=== PATIENT | male | born 1960 | race Caucasian/White ===

== ENCOUNTER 2016-08-26 08:31 | Emergency (ER) | payer OTHER ==
--- NOTE | 2016-08-26 10:35 | DIAGNOSTIC IMAGING REPORT ---
PROCEDURE: XR CHEST 1 VIEW INDICATION: COPD TECHNIQUE: Portable AP view 10:00 a.m. COMPARISON: Chest x-ray 10/14/2010. FINDINGS: Left basilar scar. Interval median sternotomy. Heart and mediastinum are normal. Thorax is normal. IMPRESSION: 1. No acute changes 2. Left basilar scar 3. Median sternotomy
--- NOTE | 2016-08-26 11:49 | ED CLINICAL REPORT ---
Clinical Report - Physicians/Mid Levels [facility] [address] [place] [address] 08/26/2016 8:32 Patient: JON JACKSON Time Seen: 0840. Arrived- By ambulance. Historian- patient and EMS personnel. HISTORY OF PRESENT ILLNESS Chief Complaint: DYSPNEA and HISTORY OF CHRONIC OBSTRUCTIVE PULMONARY DISEASE. This started just prior to arrival today and is still present but is improving. It was abrupt in onset and has been constant but is not gone now. The dyspnea is severe and is worsened by being in a supine position and is improved with sitting upright. The patient has had a mild cough productive of clear sputum. No fever, chest pain or discomfort, calf pain or foot swelling. He has had moderate anxiety. Similar symptoms previously: Many times. Recent medical care: The patient was seen recently by a health care provider. ( States he had bronchitis about 1 month ago. Treated with an antibiotic but not sure of the name.). REVIEW OF SYSTEMS The patient has not had weight loss. No muscle aches, eye irritation, sore throat, nasal discharge or sinus drainage. No nausea, vomiting, abdominal pain, diarrhea or black stools. No bloody stools, headache, fainting episodes, blurred vision or difficulty with urination. No skin rash, enlarged lymph nodes or joint pain. All systems otherwise negative, except as recorded above. PAST HISTORY See nurses notes. Problems: Headache. Breast Cancer. Ulcerative Colitis. Aspiration Pneumonia. Carbon Monoxide Poisoning. Cancer of kidney. Neuropathic pain. "Pre diabetic". COPD - Chronic Obstructive Pulmonary Disease. Myocardial Infarction. Kyrles disease. Additional Surgeries: Breast cancer. Endoscopy. Nephrectomy. Medications: Combivent Respimat Inhalation. Albuterol Sulfate Inhalation. Vistaril Oral. Magnesium Oral. Xanax Oral (Tablet 1 mg). CloNIDine HCl Oral (Tablet 0.2 mg), 3x a day. Morphine 30 mg ER QID. Allergies: Amoxicillin. E. E. S.. Erythromycin. IV Contrast. PCN. Rocephin. Several antidepressants. SOCIAL HISTORY Smoker- current status unknown. No alcohol use or drug use. No recent travel. Is a local resident. ADDITIONAL NOTES The nursing notes have been reviewed. PHYSICAL EXAM Vital Signs: Oxygen saturation normal. Appearance: Alert. No acute distress. Eyes: Pupils equal, round and reactive to light. Eyes normal inspection. ENT: Ears normal. Nose normal. Pharynx normal. Uvula midline. Neck: Normal inspection. No jugular venous distention. Neck supple. CVS: Normal heart rate and rhythm. Heart sounds normal. Pulses normal. (well healed anterior scar consistent with reported bypass surgery). Respiratory: No respiratory distress. Breath sounds normal. No wheezes, stridor, rales or rhonchi. Abdomen: Soft and nontender. No organomegaly. Skin: Skin warm and dry. Normal skin color. No rash. Normal skin turgor. Extremities: Extremities exhibit normal ROM. No lower extremity edema. Neuro: Oriented X 3. No motor deficit. No sensory deficit. LABS, X-RAYS, AND EKG EKG: No acute ischemia. Normal sinus rhythm. Rate: 74. Normal P waves. Normal MORTEZA. Normal QRS complex. Normal axis. Non-specific T wave inversion in lead V1, V2 and V3. No ST elevation or depression. normal sinus. with non specific t wave inversions. EKG unchanged when compared with prior EKG. (October 14, 2010). The study has been interpreted contemporaneously. The study has been independently viewed by me. The EKG appears to be a good tracing. Chest X-ray: No acute disease. Normal lung markings present. Normal heart size. Mediastinum normal. Great vessels normal. Soft tissues normal. No infiltrate. No fracture. No bony lesion present. Views: AP (portable). Technique: good. The X-rays were independently viewed by me, interpreted by the radiologist and contemporaneously by me and discussed with the radiologist. Prior films were not available for comparison. Laboratory Tests: CBC w Diff: (SULEMAN: 08/26/2016 09:55) ( MsgRcvd 08/26/2016 10:09) Final results Test Result Flag Units (Reference) WHITE BLOOD COUNT 12.7 H K/uL (4.5-11.5) RED BLOOD COUNT 5.32 M/uL (4.50-5.90) HEMOGLOBIN 15.9 gm/dL (13.5-17.5) HEMATOCRIT 48.8 % (41.0-53.0) MEAN CELL VOLUME 92 fL (80-100) MEAN CORPUSCULAR HGB 30 pg (26-34) MEAN CORPUSCULAR HGB CONC 33 g/dL (31-37) RED CELL DISTRIBUTION WIDTH 15.8 H % (11.6-14.8) PLATELET COUNT 164 K/uL (150-400) NEUTROPHIL % 79.3 H % (50-75) LYMPH % 11.5 L % (25-40) MONO % 7.0 % (3-14) EOSINOPHIL % 1.8 % (0-4) BASOPHIL % 0.4 % (0-2) [id number]: (SULEMAN: 08/26/2016 09:55) ( [facility] 08/26/2016 10:17) Final results Test Result Flag Units (Reference) D-DIMER QUANTITATIVE 0.40 ug/mLFEU (0.27-0.52) The primary value of this quantitative assay relates toits negative predictive value (i.e. exclusion) of pulmonaryembolism/deep vein thrombosis/DIC.Elevated levels of d-dimer may also occur with:, age, cancer, inflammation, liver disease,post-op, infection, hematoma, coronary disease, peripheralarteriopathy, bleeding disorders and thrombolytic treatment.Results should be correlated with other clinical andradiological data.Testing Methodology: Latex Immunoassay BNP: (SULEMAN: 08/26/2016 09:55) ( [facility] 08/26/2016 10:29) Final results Test Result Flag Units (Reference) B-TYPE NATRIURETIC PEPTIDE 53.4 pg/ml (5-100) Troponin-I: (SULEMAN: 08/26/2016 09:55) ( [facility] 08/26/2016 10:43) Final results Test Result Flag Units (Reference) TROPONIN I <0.05 L ng/mL (0.00-1.5) TROPONIN REFERENCE RANGE:<0.1 NEGATIVE0.1-1.5 INDETERMINANT>1.5 POSITIVE CMP: (SULEMAN: 08/26/2016 09:55) ( MsgRcvd 08/26/2016 10:43) Final results Test Result Flag Units (Reference) GLUCOSE 102 mg/dL (70-110) BUN 16 mg/dL (7-18) CREATININE 1.0 mg/dL (0.6-1.3) Estimated GFR >60 mL/min Estimated GFR- >60 mL/min Note: Persistent reduction over 3 months in eGFR<60 mL/min/1.73 m2 defines CKD. Patients with eGFR values>=60 mL/min/1.73 m2 may also have CKD if evidence ofpersistent proteinuria. Additional information may be foundat www.kidney.org. SODIUM 140 mmol/L (136-145) POTASSIUM 4.6 mmol/L (3.5-5.1) CHLORIDE 101 mmol/L (98-107) CARBON DIOXIDE 27 mmol/L (21-32) CALCIUM 9.7 mg/dL (8.5-10.1) TOTAL PROTEIN 7.7 g/dL (6.4-8.2) ALBUMIN 4.0 g/dL (3.3-5.0) BILIRUBIN, TOTAL 0.7 mg/dL (0.0-1.0) ALKALINE PHOSPHATASE 97 U/L (46-116) AST (SGOT) 19 U/L (15-37) ALT (SGPT) 15 U/L (12-78) . Pulse Oximetry: 08/26/2016 08:50 O2 saturation: 97%. (FIO2 - room air). Interpretation: normal. PROGRESS AND PROCEDURES Course of Care: Patient was signed out to me by the off going emergency physician after having been evaluatedfor his dyspnea and treated with a DuoNeb. Patient did report feeling much better after this intervention, and workup was unremarkable including a chest x-ray, laboratory studies and EKG. Patient's anxiety level was significantly less on reevaluation and I did feel he was stable for discharge home. No emergent condition was identified. Patient counseled in person regarding the patient's stable condition, test results, diagnosis and need for follow-up. Old medical records reviewed. Disposition: Discharged. Condition: stable and improved. CLINICAL IMPRESSION Acute exacerbation of COPD. Anxiety reaction with hyperventilation. INSTRUCTIONS (Your tests look good--no evidence of an emergent cause of your symptoms.). Warnings: GENERAL WARNINGS: Return or contact your physician immediately if your condition worsens or changes unexpectedly, if not improving as expected, or if other problems arise. Your Current Medications: CONTINUE TAKING THE FOLLOWING MEDICATIONS: Albuterol Sulfate Inhalation. CloNIDine HCl Oral : Tablet 0.2 mg, 3x a day. Combivent Respimat Inhalation. Magnesium Oral. Morphine 30 mg ER QID*. Vistaril Oral. Xanax Oral : Tablet 1 mg. Prescription Medications: Xanax 1 mg: take 1 orally every 8 hours as needed for anxiety. Dispense ten (10). No refill. Substitution is permissible. Follow-up: Follow up with your doctor. Call for the next available appointment. Understanding of the discharge instructions verbalized by patient. (Electronically signed by Francia Avina MD 08/29/2016 22:38)
--- NOTE | 2016-08-26 11:49 | ED ORDER SUMMARY ---
..... Patient: JON JACKSON OrderSheet [facility] VisitID: [id number] [address] [place] [address] 56y, M Registration Date/Time: 08/26/2016 ORDER SHEET Weight: 90.7 kg (stated) Allergies: Amoxicillin, E. E. S., Erythromycin, IV Contrast, PCN, Rocephin, Several antidepressants GENERAL ORDERS: Chest 1V Urgent (08:37 08/26/2016 Loni Hall) (Ack 8:39 PWeiler ER Tech1) (10:40 JSimbeck R.N.) Programmer Developer (Continuous) (Respiratory Distress) (08:37 08/26/2016 Loni Hall) (8:59 JSimbeck R.N.) CBC w Diff Urgent (08:38 08/26/2016 Loni Hall) (Ack 8:39 PWeiler ER Tech1) (10:39 JSimbeck R.N.) CMP Urgent (08:38 08/26/2016 Loni Hall) (Ack 8:39 PWeiler ER Tech1) (10:39 JSimbeck R.N.) Pulse oximeter (08:38 08/26/2016 Loni Hall) (8:59 JSimbeck R.N.) RT Evaluation Stat (08:38 08/26/2016 Loni Hall) (Ack 8:39 PWeiler ER Tech1) (8:59 JSimbeck R.N.) Troponin-I Urgent (08:48 08/26/2016 Loni Hall) (Ack 8:52 PWeiler ER Tech1) (10:40 JSimbeck R.N.) D-Dimer Urgent (08:48 08/26/2016 Loni Hall) (Ack 8:52 PWeikaren ER Tech1) (10:40 JSimbeck R.N.) BNP Urgent (08:48 08/26/2016 Loni Hall) (Ack 8:52 PWeikaren ER Tech1) (10:40 JSimbeck R.N.) EKG - ER Stat (08:48 08/26/2016 Loni Hall) (8:51 PWeikaren ER Tech1) MEDICATION ORDERS: DuoNeb Neb Tx 1 unit dose (NOW) (08:48 08/26/2016 Loni Hall) (8:49 MNance) IV FLUIDS: IV Saline Lock (08:38 08/26/2016 Loni Hall) (Ack 9:35 Christiano Braswell) ORDER SHEET NOTES: [Electronically signed by Birdie Miramontes R.N. (12:19 08/26/2016)] [Electronically signed by Francia Avina MD (22:38 08/29/2016)] [Electronically locked/signed by Birdie Miramontes R.N. (12:19 08/26/2016)]
--- NOTE | 2016-08-26 11:49 | ED NURSING NOTES ---
Clinical Report - Nurses [facility] [address] [place] [address] 08/26/2016 8:32 Patient: JON JACKSON TRIAGE Triage time 0835. Acuity: LEVEL 3. Chief Complaint: DIFFICULTY BREATHING and (unable to get a full breath, anxiety, unable to sleep. Sx are chronic with an acute exacerbation for the past several days. Ran out of Xanax.). 08:55. SEPSIS SCREEN: Sepsis Screen. Negative (no infection suspected/documented). RUSSELL COMA SCORE: [place] Coma Scale: 15- eyes open spontaneously (4); best verbal response- oriented x 4 (5); best motor response- obeys commands (6). --08:59 Klever Bassett R.N. 08:50 08/26/16. BP: 154/107 taken on the left arm, while sitting. HR: 82. RR: 20. O2 saturation: 97% on room air. Pain level now: 10/06. --08:59 Klever Bassett R.N. 09:02 08/26/16. O2 saturation: 94% on room air. Temp: 98.7 F (oral). Additional comments: after Albuterol neb tx. --09:03 Klever Bassett R.N. Weight: 90.7 kg stated. Height/Length: 69 inches Per Patient. BMI: 29.5. --08:55 Klever Bassett R.N. Medications CloNIDine HCl Oral (Tablet 0.2 mg), 3x a day. Morphine 30 mg ER QID. --08:50 Klever Bassett R.N. Xanax Oral (Tablet 1 mg). --08:50 Klever Bassett R.N. Magnesium Oral. --08:51 Klever Bassett R.N. Vistaril Oral. --08:51 Klever Bassett R.N. Albuterol Sulfate Inhalation. --08:51 Klever Bassett R.N. Combivent Respimat Inhalation. --08:52 Simbeck, Klever, R.N. Allergies Amoxicillin. E. E. S.. Erythromycin. IV Contrast. PCN. Rocephin. Several antidepressants. --08:45 Klever Bassett R.N. History Arrived by EMS, and from home (A-61). Historian: EMS and patient. Treatment PAINTINGS CONSERVATOR: (Albuterol neb 3 to 4 hours PAINTINGS CONSERVATOR). SOCIAL HX: Heavy tobacco smoker (cigarette)- 1 pack per day. History of occasional drug use: marijuana. No alcohol use. ABUSE ASSESSMENT: No report of abuse. --08:59 Klever Bassett R.N. PROBLEMS: Breast Cancer. Ulcerative Colitis. Aspiration Pneumonia. Carbon Monoxide Poisoning. Mass in chest. Cancer of kidney. Neuropathic pain. Chronic pain from neck to feet. "Pre diabetic". COPD - Chronic Obstructive Pulmonary Disease. Myocardial Infarction. Kyrles disease. Abscess. --08:45 Klever Bassett R.N. ADDITIONAL SURGERIES: Breast cancer. Endoscopy. Nephrectomy. --08:45 Klever Bassett R.N. Interventions ID band on patient. To treatment room. --08:59 Klever Bassett R.N. PHYSICAL ASSESSMENT 09:38 08/26/16. To room via stretcher. GENERAL / NEURO / PSYCH: Alert. Oriented X 4. Appears in no acute distress. HEENT: Mucous membranes are pink. RESPIRATORY: No respiratory distress. Respirations not labored. Chest nontender. Breath sounds within normal limits. CVS: Capillary refill less than 2 seconds. SKIN: Skin is warm and dry. --09:38 Birdie Miramontes R.N. NURSING PROGRESS NOTES 08:49 08/26/2016 Duoneb (Ipratropium-Albuterol) Neb TX 1 unit dose given. --08:49 Quique Solomon EKG time: (0845). EKG was ordered, performed by a tech and shown to the ED physician. --08:59 Farrah Olivo ER Tech1 08:55. equipment monitor phototypesetting, pulse oximeter and NIBP monitor placed on patient; cardiac specialist- Lead II, aVR and V1; monitor alarms on. Patient gowned. Head of bed elevated. Two patient identifiers checked. Call light placed in reach. Bed placed in lowest position. Brakes of bed on. Patient ready for evaluation- chart flagged. --09:04 Klever Bassett R.N. 09:12 08/26/2016 One (1) unsuccessful IV access attempt including the left upper arm. Applied bandaid and manual pressure. --09:37 Birdie Miramontes R.N. 09:36 08/26/16. ( lab at bedside.). --09:36 Birdie Miramontes R.N. 11:46 08/26/16. Patient informed about reason for wait and about plan of care. --11:46 Birdie Miramontes R.N. 11:44 08/26/16. BP: 156/98. HR: 80. RR: 16. O2 saturation: 95%. Temp: deferred. Pain level now: 10/06. --11:46 Birdie Miramontes R.N. DISPOSITION / DISCHARGE 12:18 08/26/16. No learning barriers present. Discharge instructions provided and reviewed with the patient. Reviewed warnings. Reviewed medication(s). Treatments reviewed. Reviewed referrals. Patient verbalized understanding. Written instructions provided in Australian. The patient was discharged by the physician. He was discharged home. He left the Emergency Department in a wheelchair and via private vehicle. Yeast Pumper driving. --12:18 Birdie Miramontes R.N. 11:44 08/26/16. BP: 156/98. HR: 80. RR: 16. O2 saturation: 95%. Temp: deferred. Pain level now: 10/06. --12:18 Birdie Miramontes R.N. Locked/Released at 08/26/2016 12:19 by Birdie Miramontes R.N.
--- NOTE | 2016-08-26 11:49 | ED ORDER SUMMARY ---
..... Patient: JON JACKSON OrderSheet [facility] VisitID: [id number] [address] [place] [address] 56y, M Registration Date/Time: 08/26/2016 ORDER SHEET Weight: 90.7 kg (stated) Allergies: Amoxicillin, E. E. S., Erythromycin, IV Contrast, PCN, Rocephin, Several antidepressants GENERAL ORDERS: Chest 1V Urgent (08:37 08/26/2016 Loni Hall) (Ack 8:39 PWeiler ER Tech1) (10:40 JSimbeck R.N.) Soaping Department Supervisor (Continuous) (Respiratory Distress) (08:37 08/26/2016 Loni Hall) (8:59 JSimbeck R.N.) CBC w Diff Urgent (08:38 08/26/2016 Loni Hall) (Ack 8:39 PWeiler ER Tech1) (10:39 JSimbeck R.N.) CMP Urgent (08:38 08/26/2016 Loni Hall) (Ack 8:39 PWeiler ER Tech1) (10:39 JSimbeck R.N.) Pulse oximeter (08:38 08/26/2016 Loni Hall) (8:59 JSimbeck R.N.) RT Evaluation Stat (08:38 08/26/2016 Loni Hall) (Ack 8:39 PWeiler ER Tech1) (8:59 JSimbeck R.N.) Troponin-I Urgent (08:48 08/26/2016 Loni Hall) (Ack 8:52 PWeiler ER Tech1) (10:40 JSimbeck R.N.) D-Dimer Urgent (08:48 08/26/2016 Loni Hall) (Ack 8:52 PWeikaren ER Tech1) (10:40 JSimbeck R.N.) BNP Urgent (08:48 08/26/2016 Loni Hall) (Ack 8:52 PWeikaren ER Tech1) (10:40 JSimbeck R.N.) EKG - ER Stat (08:48 08/26/2016 Loni Hall) (8:51 PWeikaren ER Tech1) MEDICATION ORDERS: DuoNeb Neb Tx 1 unit dose (NOW) (08:48 08/26/2016 Loni Hall) (8:49 MNance) IV FLUIDS: IV Saline Lock (08:38 08/26/2016 Loni Hall) (Ack 9:35 Christiano Braswell) ORDER SHEET NOTES: [Electronically signed by Birdie Miramontes R.N. (12:19 08/26/2016)] [Electronically signed by Francia Avnia MD (22:38 08/29/2016)] [Electronically locked/signed by Birdie Miramontes R.N. (12:19 08/26/2016)]
--- NOTE | 2016-08-26 11:49 | ED NURSING NOTES ---
Clinical Report - Nurses [facility] [address] [place] [address] 08/26/2016 8:32 Patient: JON JACKSON TRIAGE Triage time 0835. Acuity: LEVEL 3. Chief Complaint: DIFFICULTY BREATHING and (unable to get a full breath, anxiety, unable to sleep. Sx are chronic with an acute exacerbation for the past several days. Ran out of Xanax.). 08:55. SEPSIS SCREEN: Sepsis Screen. Negative (no infection suspected/documented). RUSSELL COMA SCORE: [place] Coma Scale: 15- eyes open spontaneously (4); best verbal response- oriented x 4 (5); best motor response- obeys commands (6). --08:59 Klever Bassett R.N. 08:50 08/26/16. BP: 154/107 taken on the left arm, while sitting. HR: 82. RR: 20. O2 saturation: 97% on room air. Pain level now: 10/06. --08:59 Klever Bassett R.N. 09:02 08/26/16. O2 saturation: 94% on room air. Temp: 98.7 F (oral). Additional comments: after Albuterol neb tx. --09:03 Klever Bassett R.N. Weight: 90.7 kg stated. Height/Length: 69 inches Per Patient. BMI: 29.5. --08:55 Klever Bassett R.N. Medications CloNIDine HCl Oral (Tablet 0.2 mg), 3x a day. Morphine 30 mg ER QID. --08:50 Klever Bassett R.N. Xanax Oral (Tablet 1 mg). --08:50 Klever Bassett R.N. Magnesium Oral. --08:51 Klever Bassett R.N. Vistaril Oral. --08:51 Klever Bassett R.N. Albuterol Sulfate Inhalation. --08:51 Klever Bassett R.N. Combivent Respimat Inhalation. --08:52 Simbeck, Klever, R.N. Allergies Amoxicillin. E. E. S.. Erythromycin. IV Contrast. PCN. Rocephin. Several antidepressants. --08:45 Klever Bassett R.N. History Arrived by EMS, and from home (A-61). Historian: EMS and patient. Treatment PROSTHETIC LAB TECHNICIAN: (Albuterol neb 3 to 4 hours PROSTHETIC LAB TECHNICIAN). SOCIAL HX: Heavy tobacco smoker (cigarette)- 1 pack per day. History of occasional drug use: marijuana. No alcohol use. ABUSE ASSESSMENT: No report of abuse. --08:59 Klever Bassett R.N. PROBLEMS: Breast Cancer. Ulcerative Colitis. Aspiration Pneumonia. Carbon Monoxide Poisoning. Mass in chest. Cancer of kidney. Neuropathic pain. Chronic pain from neck to feet. "Pre diabetic". COPD - Chronic Obstructive Pulmonary Disease. Myocardial Infarction. Kyrles disease. Abscess. --08:45 Klever Bassett R.N. ADDITIONAL SURGERIES: Breast cancer. Endoscopy. Nephrectomy. --08:45 Klever Bassett R.N. Interventions ID band on patient. To treatment room. --08:59 Klever Bassett R.N. PHYSICAL ASSESSMENT 09:38 08/26/16. To room via stretcher. GENERAL / NEURO / PSYCH: Alert. Oriented X 4. Appears in no acute distress. HEENT: Mucous membranes are pink. RESPIRATORY: No respiratory distress. Respirations not labored. Chest nontender. Breath sounds within normal limits. CVS: Capillary refill less than 2 seconds. SKIN: Skin is warm and dry. --09:38 Birdie Miramontes R.N. NURSING PROGRESS NOTES 08:49 08/26/2016 Duoneb (Ipratropium-Albuterol) Neb TX 1 unit dose given. --08:49 Quique Solomon EKG time: (0845). EKG was ordered, performed by a tech and shown to the ED physician. --08:59 Farrah Olivo ER Tech1 08:55. monitoring manager, pulse oximeter and NIBP monitor placed on patient; telemetry monitor- Lead II, aVR and V1; monitor alarms on. Patient gowned. Head of bed elevated. Two patient identifiers checked. Call light placed in reach. Bed placed in lowest position. Brakes of bed on. Patient ready for evaluation- chart flagged. --09:04 Klever Bassett R.N. 09:12 08/26/2016 One (1) unsuccessful IV access attempt including the left upper arm. Applied bandaid and manual pressure. --09:37 Birdie Miramontes R.N. 09:36 08/26/16. ( lab at bedside.). --09:36 Birdie Miramontes R.N. 11:46 08/26/16. Patient informed about reason for wait and about plan of care. --11:46 Birdie Miramontes R.N. 11:44 08/26/16. BP: 156/98. HR: 80. RR: 16. O2 saturation: 95%. Temp: deferred. Pain level now: 10/06. --11:46 Birdie Miramontes R.N. DISPOSITION / DISCHARGE 12:18 08/26/16. No learning barriers present. Discharge instructions provided and reviewed with the patient. Reviewed warnings. Reviewed medication(s). Treatments reviewed. Reviewed referrals. Patient verbalized understanding. Written instructions provided in Swedish. The patient was discharged by the physician. He was discharged home. He left the Emergency Department in a wheelchair and via private vehicle. Director Outpatient Services driving. --12:18 Birdie Miramontes R.N. 11:44 08/26/16. BP: 156/98. HR: 80. RR: 16. O2 saturation: 95%. Temp: deferred. Pain level now: 10/06. --12:18 Birdie Miramontes R.N. Locked/Released at 08/26/2016 12:19 by Birdie Miramontes R.N.
--- NOTE | 2016-08-29 22:38 | ED MAR SUMMARY ---
..... Medication Administration Record [facility] [address] [place] [address] Patient: JON JACKSON Visit ID: [id number] 56y, M Weight: 90.7 kg Height/Length: 69 in BMI: 29.5 ALLERGIES: Amoxicillin, E. E. S., Erythromycin, IV Contrast, PCN, Rocephin, Several antidepressants Given 08:49 08/26/2016 Quique Solomon, Medication Administered: DUONEB [NEB TX] (IPRATROPIUM-ALBUTEROL), Dose: 1 unit dose Neb TX. Medication Ordered: DuoNeb Neb Tx 1 unit dose (NOW).
--- NOTE | 2016-08-29 22:38 | ED MAR SUMMARY ---
..... Medication Administration Record [facility] [address] [place] [address] Patient: JON JACKSON Visit ID: [id number] 56y, M Weight: 90.7 kg Height/Length: 69 in BMI: 29.5 ALLERGIES: Amoxicillin, E. E. S., Erythromycin, IV Contrast, PCN, Rocephin, Several antidepressants Given 08:49 08/26/2016 Quique Solomon, Medication Administered: DUONEB [NEB TX] (IPRATROPIUM-ALBUTEROL), Dose: 1 unit dose Neb TX. Medication Ordered: DuoNeb Neb Tx 1 unit dose (NOW).
--- NOTE | 2016-08-29 22:38 | ED DISCHARGE INSTRUCTIONS ---
Patient: JON JACKSON General Instructions [facility] VisitID: [id number] [place] [address] 56y, M Registration Date/Time: 08/26/2016 Acute exacerbation of COPD. Anxiety reaction with hyperventilation. INSTRUCTIONS (Your tests look good--no evidence of an emergent cause of your symptoms.). Warnings: GENERAL WARNINGS: Return or contact your physician immediately if your condition worsens or changes unexpectedly, if not improving as expected, or if other problems arise. Your Current Medications: CONTINUE TAKING THE FOLLOWING MEDICATIONS: Albuterol Sulfate Inhalation. CloNIDine HCl Oral : Tablet 0.2 mg, 3x a day. Combivent Respimat Inhalation. Magnesium Oral. Morphine 30 mg ER QID*. Vistaril Oral. Xanax Oral : Tablet 1 mg. Prescription Medications: Xanax 1 mg: take 1 orally every 8 hours as needed for anxiety. Dispense ten (10). No refill. Substitution is permissible. Follow-up: Follow up with your doctor. Call for the next available appointment. Understanding of the discharge instructions verbalized by patient. ADDITIONAL INFORMATION COPD Flare Both emphysema and chronic bronchitis are forms of chronic obstructive pulmonary disease (COPD). It is most often caused by many years of smoking tobacco. Many things can make your lung disease suddenly get worse. These causes include the common cold, pneumonia, acute bronchitis, missing doses of your regular breathing medicines, or being around smoke, dust, or other air pollutants. A COPD flare may last 7 to 14 days. Your doctor may prescribe medicineto relax your airways and prevent wheezing. Your doctor may also prescribe antibiotics if he or she thinks you havea bacterial infection. Prednisone can helpease inflammation in a severe attack. Home care Here are things you can do at home: Drink lots of water or other fluids (at least 10 glasses a day) during an attack. This will loosen lung secretions and make it easier to breathe. If you have heart or kidney disease, check with your doctor before you drink extra amounts of fluids. Take prescribed medicine exactly at the times advised. If you have a hand-held inhaler or aerosol breathing medicine, don't use it more than once every 4 hours, unless your doctor tells you to. If you were givenan antibiotic or prednisone, take all of the medicine even if you are feeling better after a few days. Don't smoke. Avoid being aroundthe smoke of others. If you were given an inhaler, use it exactly as directed. If you need to use it more often than prescribed, your condition may be getting worse. Call your doctor. Follow-up care Follow up with your health care provider.If you are 65 or older or have chronic asthma or COPD, you should get a single dose of the pneumococcal vaccine and aflu shot each year. You may need a second dose of the pneumococcal vaccine if you had the first dose at a younger age. Your health care provider will let you know if you need a second dose. For all other people, the usual dose for the pneumococcal vaccine is 1 or 2 shots. Yourprovider can discuss this with you. When to seek medical care Get prompt medical attention ifany of these occur: Increased wheezing or shortness of breath Need to use your inhalers more often than usual without relief Fever of 100.4F(38C) or higher, or as directed by your health care provider Coughing up lots of dark-colored or bloody sputum (mucus) Chest pain with each breath You do not start to improve within 24 hours Stress Reaction Anxiety is the feeling we all get when we think something bad might happen. It is a normal response to stress and usually causes only a mild reaction. When anxiety becomes more severe, emotions may interfere with daily life. In some cases, you may not even be aware of what it is youre anxious about! During an anxiety reaction, you may feel like you are helpless, nervous, depressed or irritable. Your body may show signs of anxiety in many ways. You may experience dry mouth, shakiness, dizziness, weakness, trouble breathing, chest pressure, headache, nausea, diarrhea, tiredness, inability to sleep or sexual problems. Home Care: 1) Try to locate the sources of stress in your life. They may not be obvious! These may include: -- Daily hassles of life which pile up (traffic jams, missed appointments, car troubles, etc.) -- Major life changes, both good (new baby, job promotion) and bad (loss of job, loss of loved one) -- Overload: feeling that you have too many responsibilities and can't take care of all of them at once -- Feeling helpless, feeling that your problems are beyond what youre able to solve 2) Notice how your body reacts to stress. Learn to listen to your body signals. This will help you take action before the stress becomes severe. 3) When you can, do something about the source of your stress. (Avoid hassles, limit the amount of change that happens in your life at one time and take a break when you feel overloaded). 4) Unfortunately, many stressful situations cannot be avoided. It is necessary to learn HOW TO MANAGE STRESS better. There are many proven methods that will reduce your anxiety. These include simple things like exercise, good nutrition and adequate rest. Also, there are certain techniques that are helpful: relaxation and breathing exercises, visualization, biofeedback and meditation. For more information about this, consult your doctor or go to a local bookstore and review the many books and tapes available on this subject. Follow Up If you feel that your anxiety is not responding to self-help measures, contact your doctor or make an appointment with a counselor. Get Prompt Medical Attention if any of the following occur: -- Your symptoms get worse -- Chest pain or trouble breathing -- Severe headache not relieved by rest and mild pain reliever -- Rapid or irregular heartbeat, fainting You have been given the following additional information: COPD Flare Anxiety Reaction (Electronically signed by Francia Avina MD 08/29/2016 22:38)
--- NOTE | 2016-08-29 22:38 | ED MED RECONCILIATION SUMMARY ---
Patient: JON JACKSON Medication Reconciliation Report [facility] VisitID: [id number] [address] [place] [address] 56y, M Registration Date/Time: 08/26/2016 Weight: 90.7 kg Height/Length: 69 in. BMI: 29.5 ALLERGIES: Amoxicillin, E. E. S., Erythromycin, IV Contrast, PCN, Rocephin, Several antidepressants The patient's Home Medications are listed below: CONTINUE TAKING THE FOLLOWING MEDICATIONS: Albuterol Sulfate Inhalation CloNIDine HCl Oral (0.2 mg), 3x a day Combivent Respimat Inhalation Magnesium Oral Morphine 30 mg ER QID Vistaril Oral Xanax Oral (1 mg) The source(s) of the original Home Medication information: Not obtained. The following Medications were given to the patient in the Emergency Department: Duoneb [Neb Tx] Neb [place] 1 unit dose, administered: 08/26/2016 8:49:00 AM The following Medications were prescribed to the patient: Xanax 1 mg: take 1 orally every 8 hours as needed for anxiety. Dispense ten (10). No refill. Substitution is permissible. -- Francia Avina MD
--- NOTE | 2016-08-29 22:38 | ED MED RECONCILIATION SUMMARY ---
Patient: JON JACKSON Medication Reconciliation Report [facility] VisitID: [id number] [address] [place] [address] 56y, M Registration Date/Time: 08/26/2016 Weight: 90.7 kg Height/Length: 69 in. BMI: 29.5 ALLERGIES: Amoxicillin, E. E. S., Erythromycin, IV Contrast, PCN, Rocephin, Several antidepressants The patient's Home Medications are listed below: CONTINUE TAKING THE FOLLOWING MEDICATIONS: Albuterol Sulfate Inhalation CloNIDine HCl Oral (0.2 mg), 3x a day Combivent Respimat Inhalation Magnesium Oral Morphine 30 mg ER QID Vistaril Oral Xanax Oral (1 mg) The source(s) of the original Home Medication information: Not obtained. The following Medications were given to the patient in the Emergency Department: Duoneb [Neb Tx] Neb [place] 1 unit dose, administered: 08/26/2016 8:49:00 AM The following Medications were prescribed to the patient: Xanax 1 mg: take 1 orally every 8 hours as needed for anxiety. Dispense ten (10). No refill. Substitution is permissible. -- Francia Avina MD
== END 2016-08-26 12:18 | disposition home or self-care (01) ==
LOC: ED SRH 08:31
DX: J44.1 Chronic obstructive pulmonary disease with (acute) exacerbation (principal); R06.4 Hyperventilation; F41.1 Generalized anxiety disorder; Z79.891 Long term (current) use of opiate analgesic; Z79.899 Other long term (current) drug therapy; F17.219 Nicotine dependence, cigarettes, with unspecified nicotine-induced disorders; Z88.0 Allergy status to penicillin; Z88.8 Allergy status to other drugs, medicaments and biological substances; Z88.1 Allergy status to other antibiotic agents; Z91.041 Radiographic dye allergy status
CPT/HCPCS: 90074; 90100; 90616; 91320; 91556; 95059